=== PATIENT | female | born 1960 | race Two or more races ===

== ENCOUNTER 2019-06-25 12:42 | Emergency (ER) | payer SELFPAY ==
[~2019-06-25] VITALS: Ht 160 cm; Wt 64.9 kg
[2019-06-25] MEDS ORDERED: Albuterol/Ipratropium 3ml neb HHN ONE (13:15)
[2019-06-25 13:27] VITALS: BP 109/67
--- NOTE | 2019-06-25 13:27 | NUR ---
came to er complaints of flu symptoms with some cough . examined by md breathing treatment started
[2019-06-25] MEDS ORDERED: ALBUTEROL SULF8.5 GM INH (13:46)
[2019-06-25] MEDS ORDERED: GUAIFENESIN DM118 M1 ORAL (13:46)
[2019-06-25] MEDS ORDERED: PREDNISONE20 MG ORAL (13:46)
[2019-06-25 14:00] VITALS: BP 111/72
--- NOTE | 2019-06-25 14:00 | NUR ---
ED Nurse Note: Patient cleared by Dr. Bernal for discharge. Verbalized understanding of prescriptions and DC instructions. No s/s of acute distress. Patient has steady gait, AxO x 4. ID band removed.
--- NOTE | 2019-06-25 14:02 | Emergency Room Report ---
History of Present Illness General Chief Complaint: Flu Like Symptoms Source: Patient Present Illness HPI 58-year-old female who presents after persistent cough for several weeks. She reports having predominantly nonproductive cough with intermittent sputum production. She denies any fever. She had recently finished a course of antibiotics. She is currently taking bends and benzonate without any improvement in cough. She reports having some soreness of her throat. Denies any vomiting or diarrhea. Allergies: Coded Allergies: No Known Allergies (Unverified , 06/25/19) Patient History Past Medical History: see triage record Now: No Reviewed Nursing Documentation: PMH: Agreed; PSxH: Agreed Nursing Documentation-PMH Past Medical History: No Stated History Review of Systems All Other Systems: negative except mentioned in HPI Physical Exam Vital Signs Date Time Temp Pulse Resp B/P (MAP) Pulse Ox O2 Delivery O2 Flow Rate FiO2 06/25/19 12:50 99.3 99 18 109/67 (81) 97 Room Air 06/25/19 13:26 21 General Appearance: well appearing, no apparent distress, alert, GCS 15, non- toxic Head: normocephalic, atraumatic ENT: hearing grossly normal, normal voice Neck: full range of motion, supple Respiratory: lungs clear, normal breath sounds, no respiratory distress, speaking full sentences Cardiovascular #1: normal inspection, normal peripheral pulses Gastrointestinal: normal inspection Musculoskeletal: normal inspection, no calf tenderness Neurologic: alert, motor strength/tone normal, 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 Differential diagnosis included but was not limited to bronchitis, pneumonia, pulmonary embolism, pericarditis, asthma, foreign body. Patient has a benign exam and does not appear to require any laboratory testing at this time. Chest x-ray 1 view interpreted by me showed no apparent infiltrate or effusion. Cardiac size was normal. She was given a breathing treatment with some improvement. Patient was given prescription for medication for symptomatic treatment. Patient was advised outpatient follow-up with her primary care physician for recheck. She is to return if worse. Last Vital Signs Date Time Temp Pulse Resp B/P (MAP) Pulse Ox O2 Delivery O2 Flow Rate FiO2 06/25/19 13:27 99.3 18 109/67 97 Room Air 06/25/19 13:26 88 98 Status: improved Disposition: HOME, SELF-CARE Condition: Stable Scripts Guaifenesin/Dextromethorphan (Guaifenesin Dm Syrup) 5 Ml Syrup 1 TSP ORAL Q8H, #118 ML 0 Refills Prov: Rafael Bernal MD 06/25/19 Albuterol Sulfate* (ALBUTEROL SULFATE MDI*) 8.5 Gm Hfa.aer.ad 2 PUFF INH Q4H PRN for cough/wheezing, #1 EA 0 Refills Prov: Rafael Bernal MD 06/25/19 Prednisone* (PREDNISONE*) 20 Mg Tablet 40 MG ORAL DAILY, #10 TAB Prov: Rafael Bernal MD 06/25/19 Patient Instructions: Acute Bronchitis Rafael Bernal MD Jun 25, 2019 14:02
--- NOTE | 2019-06-25 14:29 | Diagnostic Imaging Report ---
Indication: Cough Comparison: None A single view chest radiograph was obtained. Findings: Cardiomediastinal appearance is within normal limits for age. The lungs are clear. Pulmonary vascularity is appropriate. The diaphragmatic contour is smooth and costophrenic angles are sharp. No pleural effusions are identified. The bones are unremarkable. Impression: No acute findings
== END 2019-06-25 14:00 | disposition home or self-care (01) ==
LOC: EMR 13:10
DX: J20.8 Acute bronchitis due to other specified organisms (principal)
CPT/HCPCS: 71045; 99284; J7620